=== PATIENT | male | born 1930 | race Caucasian/White ===

== ENCOUNTER 2016-10-09 00:23 | Day surgery (SDC) | payer MEDICARE, OTHER ==
[~2016-10-09] VITALS: Ht 177.8 cm; Wt 81.5 kg
[~2016-10-09 00:23] MED LIST: AMLO5TAB2 PO; LEVO25TA5 PO; LISI-571 PO; LOSA50TA37 PO; LOVA40TA PO; METO-274 PO; WARF2TAB7 PO
[2016-10-09] MEDS ORDERED: 0.9% Sodium Chloride 1,000 ML IV SCH (09:00)
[2016-10-09] MEDS ORDERED: Methohexital 10 mg/mL 50 mL Inj IV ONE (09:00)
[2016-10-09 09:40] VITALS: BP 114/78; PULSE 63; RESP 19; O2SAT 97
[2016-10-09 09:43] LABS: BASOPHILS % (AUTO) 0.4 % (0-3); EOSINOPHILS % (AUTO) 2.3 % (0-5); MONOCYTES % (AUTO) 13.5 % (4-12); Mean Corpuscular Hemoglobin 32.7 pg (27.0-35.0); Mean Corpuscular Volume 95.5 fL (81-100); NEUTROPHILS % (AUTO) 56.6 % (40-74); Platelet Count 175 bil/L (150-400)
[2016-10-09 10:08] LABS: INR 2.81 ratio
[2016-10-09 10:35] VITALS: BP 105/92; PULSE 60; RESP 19; RESP 20; O2SAT 95
[2016-10-09 10:40] VITALS: BP 130/76; PULSE 60; RESP 20; O2SAT 95
[2016-10-09 10:45] VITALS: BP 132/71; PULSE 61; RESP 20; O2SAT 95
[2016-10-09 11:00] VITALS: BP 119/68; PULSE 61; RESP 19; O2SAT 98
[2016-10-09] MEDS ORDERED: FLC50T PO (13:03)
--- NOTE | 2016-10-09 14:22 | PROCED ---
[address] [address] PROCEDURE NOTE PATIENT: CLARIBEL HOLLINS : 1930 MR#: [id number] ADMIT: 10/09/2016 JOB ID: [id number] DATE OF SERVICE: 10/09/2016 INDICATION FOR THE PROCEDURE: Persistent atrial fibrillation. POSTOPERATIVE DIAGNOSIS(ES): PREOPERATIVE DIAGNOSIS(ES): SURGEON: Tamiko Marie M.D. PROCEDURES PERFORMED: DC cardioversion. METHOD: Following informed consent, the patient was sedated with Versed 1 mg and Brevital 30 mg IV. 200 joules of synchronized energy was delivered. Normal sinus rhythm was restored. No complications immediately postprocedure. Postprocedure EKG demonstrated that he was A paced, V sensed. Thank you very much for the opportunity to participate in his care.
== END 2016-10-09 23:59 | disposition home or self-care (01) ==
LOC: SOUO 00:23
PROVIDERS: ATTEND Internal Medicine
DX: I48.1 Persistent atrial fibrillation (principal); I49.5 Sick sinus syndrome; I45.2 Bifascicular block; R73.09 Other abnormal glucose; I12.9 Hypertensive chronic kidney disease with stage 1 through stage 4 chronic kidney disease, or unspecified chronic kidney disease; Z86.73 Personal history of transient ischemic attack (TIA), and cerebral infarction without residual deficits; Z95.0 Presence of cardiac pacemaker; N18.9 Chronic kidney disease, unspecified; Z79.01 Long term (current) use of anticoagulants; Z87.891 Personal history of nicotine dependence
CPT/HCPCS: 36415; 80048; 85025; 85610; 92960; 93005; 94799; 99152; J2250; J7030

== ENCOUNTER 2016-11-28 05:28 | Inpatient (IN) | payer MEDICARE, OTHER ==
[2016-11-28] VITALS (10 sets, daily range): BP systolic 98–137; BP diastolic 55–77; PULSE 61–73; RESP 12–20; O2SAT 93–99
[~2016-11-28] VITALS: Ht 177.8 cm; Wt 75.0 kg
[~2016-11-28 05:28] MED LIST changes: +FLC50T PO; -LISI-571 PO; -METO-274 PO; +METO-394 PO
[2016-11-28] MEDS ORDERED: 0.9% Sodium Chloride 1,000 ML IV ONE (05:48)
[2016-11-28] MEDS ORDERED: Ondansetron 2 mg/mL 2 mL Inj IVPUSH ONE ×2 (05:50→06:20)
[2016-11-28 05:56] LABS: BASOPHILS % (AUTO) 0 % (0-3); EOSINOPHILS % (AUTO) 0 % (0-5); MONOCYTES % (AUTO) 5.4 % (4-12); Mean Corpuscular Hemoglobin 33.8 pg (27.0-35.0); Mean Corpuscular Volume 96.3 fL (81-100); NEUTROPHILS % (AUTO) 87.5 % (40-74); Platelet Count 201 bil/L (150-400)
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
[2016-11-28 06:14] LABS: INR 2.58 ratio
[2016-11-28 06:18] LABS: Magnesium 1.7 mg/dL (1.6-2.6)
[2016-11-28] MEDS ORDERED: 0.9% Sodium Chloride 500 ML IV ONE (06:20)
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
[2016-11-28] MEDS ORDERED: Ondansetron 2 mg/mL 2 mL Inj IVPUSH PRN (08:40)
[2016-11-28] MEDS ORDERED: Alum-Mag Hydrox-Simeth 30 mL Suspension PO PRN (08:40)
[2016-11-28] MEDS: 0.9% Sodium Chloride 1,000 ML IV SCH ×2 (10:16→21:58)
--- NOTE | 2016-11-28 10:18 | NUR ---
Admit Patient arrived to unit around 1000. Notified Dr. Wayne. patient is alert and orientedX3. Admission done and daughter will bring medication list from home today and med Req will done. Denies any abdominal pain or discomfort. Fluids started as ordered. Stable VS. No nausea or vomiting. NPO. Verbal orders for Tele. No sign and symptoms of cardiac or respiratory distress noted. Has pace maker.
[2016-11-28 10:28] LABS: APPEARANCE,URINE CLEAR (CLEAR,HAZY); COLOR,URINE YELLOW (YELLOW); OCCULT BLOOD,URINE NEGATIVE (NEGATIVE); PH,URINE 7.5 (5.0-8.0); UROBILINOGEN,URINE NORMAL (NORMAL)
--- NOTE | 2016-11-28 10:36 | DRSVH ---
PROCEDURE: CT ABDOMEN AND PELVIS WITH CONTRAST ([id number]) INDICATIONS: Abd Pain, N/V TECHNIQUE: After the administration of oral and intravenous contrast, 5 mm thick sections acquired from the diap hragms to the symphysis. 5 mm thick coronal and sagittal reformats were performed. For radiation do se reduction, the following was used: automated exposure control, adjustment of mA and/or kV accordi ng to patient size. COMPARISON: [facility], CT, CHEST/ABD/PELVIS W/CON ([facility] 12/25/2013, 15:32. FINDINGS: Image quality: Excellent. ABDOMEN: Lung bases: Lung bases are clear. Heart size is normal. Solid organs: Liver and spleen are normal in size and enhancement. Gallbladder appears normal but c ontracted. Biliary system is non-dilated. Pancreas enhances normally. No adrenal nodules. Kidneys are normal in size and enhancement, without hydronephrosis. Simple renal cortical cysts are present bilaterally. Peritoneum and bowel:: loops are normal in caliber and wall thickness but there is proximal small bow el fluid distention extending to an area of surgical staple lines at the left midabdomen, with a demarco evelyn of small bowel high grade stenosis or obstruction not previously present in this area. No free f luid or air. Nodes and vessels: No retroperitoneal or mesenteric adenopathy. Aorta and inferior vena cava are no rmal in caliber. Miscellaneous: No ventral hernias. PELVIS: Genitourinary: Bladder wall thickness is normal. Miscellaneous: No inguinal hernias or adenopathy. Bones: No suspicious bony lesions. No vertebral body compression fractures. IMPRESSION: Postsurgical changes within the abdomen including surgical enteric staple lines exactly a t the point of transition from proximal small bowel dilatation to relative collapse, left mid to lowe r abdomen. Postoperative adhesion is the likely cause given this appearance. No bowel perforation i s found. Note: These findings are concordant with the preliminary interpretation. Dictated by: Kem Simms M.D. on 11/28/2016 at 10:31 Approved by: Kem Simms M.D. on 11/28/2016 at 10:34
--- NOTE | 2016-11-28 13:12 | NUR ---
Case Management: IMM given explained to daughter, Emi. Jacqueline LOMBARDI, RN
[2016-11-28] MEDS ORDERED: WARF2TAB7 PO (13:36)
[2016-11-28] MEDS ORDERED: WARF4TAB6 PO (13:36)
--- NOTE | 2016-11-28 18:18 | NUR ---
GI- Denies abd. pain. No complaints of N&V. NPO except for meds. Tele-sinus rhythm.
[2016-11-28] MEDS ORDERED: .Epic Conversion Completed XX PRN (19:15)
--- NOTE | 2016-11-28 21:31 | NUR ---
SEE PAPER CHARTING AFTER MIDNIGHT.
--- NOTE | 2016-11-28 22:45 | NUR ---
GI; no c/o nausea. Up to the bathroom to have loose bms. -Brown to green. No c/o pain. Addendum: 11/28/16 at 2250 by LEEROY TORO RN no blood noted in stools.
== END 2016-11-29 01:26 | disposition admitted as inpatient to this hospital (09) | DRG 951 ==
LOC: SED 05:28 → OBSVTOIN 09:22 → OSC 09:22
PROVIDERS: ADMIT Internal Medicine; ATTEND Internal Medicine
DX: R69 Illness, unspecified (principal)